=== PATIENT | male | born 1950 | race Caucasian/White ===

== ENCOUNTER 2021-04-03 17:11 | Emergency (ER) | payer MEDICARE, BC ==
--- NOTE | 2021-04-03 18:33 | EDM.PDOC ---
ED HPI GENERAL MEDICAL PROBLEM - General Chief Complaint: Upper Extremity Injury/Pain Stated Complaint: INJURED HAND Time Seen by Provider: 04/03/21 18:32 Source of Information: Reports: Patient, RN Notes Reviewed History Limitations: Reports: No Limitations - History of Present Illness INITIAL COMMENTS - FREE TEXT/NARRATIVE: Adrián presents today for complaints of left hand injury. He reports he was using a drill and it struck metal, causing twisting and a crack in his hand. Pain to the 4th metacarpal. He states he initially had some deformity, he straightened his 4th finger and the deformity decreased. He has not taken any OTC medications for pain, ice applied to area. He denies any other injury or trauma. - Related Data Allergies Allergy/AdvReac Type Severity Reaction Status Date / Time No Known Allergies Allergy Verified 04/03/21 18:12 Home Meds: Home Meds lisinopriL [Lisinopril] 1 tab PO DAILY 04/03/21 [History] Past Medical History Cardiovascular History: Reports: Hypertension Genitourinary History: Reports: BPH - Past Surgical History Male Surgical History: Reports: Prostatectomy Social & Family History - Tobacco Use Tobacco Use Status *Q: Never Tobacco User Review of Systems - Review of Systems Review Of Systems: See Below Constitutional: Reports: No Symptoms Eyes: Reports: No Symptoms Ears: Reports: No Symptoms Nose: Reports: No Symptoms Mouth/Throat: Reports: No Symptoms Respiratory: Reports: No Symptoms Cardiovascular: Reports: No Symptoms GI/Abdominal: Reports: No Symptoms Musculoskeletal: Reports: Other (left hand pain) Skin: Reports: No Symptoms Neurological: Reports: No Symptoms Psychiatric: Reports: No Symptoms ED EXAM, GENERAL - Physical Exam Exam: See Below Exam Limited By: No Limitations General Appearance: Alert, WD/WN, No Apparent Distress Head: Atraumatic, Normocephalic Respiratory/Chest: No Respiratory Distress, Lungs Clear, Normal Breath Sounds, No Accessory Muscle Use, Chest Non-Tender. No: Crackles, Rales, Rhonchi, Wheezing Cardiovascular: Normal Peripheral Pulses, Regular Rate, Rhythm, No Edema, No Gallop, No Murmur, No Rub Peripheral Pulses: 4+: Radial (L), Radial (R) Extremities: Normal Capillary Refill, Other (slightly decreased ROM to left 4th finger, no obvious deformity noted. Tender over 4th metacarpal. No pain to left wrist or elbow.) Neurological: Alert, Oriented, Normal Cognition, Normal Gait, No Motor/Sensory Deficits Psychiatric: Normal Affect, Normal Mood Skin Exam: Warm, Dry, Intact, Normal Color, No Rash Lymphatic: No Adenopathy ED TRAUMA EXTREMITY PROCEDURES - Splinting Left Upper Extremity Splint Site: left hand Pre-Procedure NV Status: Normal Post-Procedure NV Status: Normal Splint Material: Fiberglass Splint Design: Gutter (ulnar gutter to 70 degrees) Applied & Form Fitted By: Provider Provider Post-Splint Application NV Check: NV Status Normal, Good Position Complications: No Course - Vital Signs Last Recorded V/S: Last Vital Signs Temp 36.2 C 04/03/21 18:18 Pulse 62 04/03/21 18:18 Resp 16 04/03/21 18:18 BP 161/93 H 04/03/21 18:18 Pulse Ox 99 04/03/21 18:18 - Orders/Labs/Meds Orders: Active Orders 24 hr Category Date Time Status Hand Comp Min 3V Lt [CR] Stat Exams 04/03/21 18:40 Taken - Radiology Interpretation Free Text/Narrative:: Mildly displaced 4th metacarpal fracture -spiral to left hand. Images pushed to [facility]. Images reviewed with patient. Per [facility], we will splint patient in ulnar gutter splint at 70 degrees and have him follow up at the [facility] with a telephone call on Monday April 05, 2021 to schedule an appointment. - Re-Assessments/Exams Free Text/Narrative Re-Assessment/Exam: 04/03/21 19:40 [facility] manager telephoned back. We will splint patient with a ulnar gutter splint and have patient follow up with [facility] Tuesday morning for an appointment next week. Patient in agreement with plan. Departure - Departure Time of Disposition: 20:09 Disposition: Home, Self-Care 01 Condition: Good Clinical Impression: Fracture of metacarpal bone - Discharge Information *PRESCRIPTION DRUG MONITORING PROGRAM REVIEWED*: No *COPY OF PRESCRIPTION DRUG MONITORING REPORT IN PATIENT EVITA: No Instructions: Cast or Splint Care, Adult, [id number], Metacarpal Fracture, [id number] Referrals: PCP,None [Primary Care Provider] - Forms: ED Department Discharge Additional Instructions: You have been evaluated and treated for a 4th angulated slightly displaced fracture of the 4th metacarpal. Take acetaminophen and ibuprofen as needed for pain. Rest, ice elevate the left hand to help with pain. Wear sling when up to help with pain/edema. Follow up with [facility] orthopedic clinic on Tuesday April 06, 2021. Telephone the clinic and request a orthopedic visit for follow up. Return for any worsening, issues or concerns. Sepsis Event Note (ED) - Evaluation Sepsis Screening Result: No Definite Risk - Focused Exam Vital Signs: Vital Signs Temp Pulse Resp BP Pulse Ox 04/03/21 18:18 36.2 C 62 16 161/93 H 99 04/03/21 17:56 36.2 C 62 16 161/93 H 99 - My Orders Last 24 Hours: My Active Orders 04/03/21 18:40 Hand Comp Min 3V Lt [CR] Stat - Assessment/Plan Last 24 Hours: My Active Orders 04/03/21 18:40 Hand Comp Min 3V Lt [CR] Stat Assessment:: Fracture of metacarpal bone Left 4th with angulation and slight displacement Plan: Patient evaluated and treated for a 4th angulated slightly displaced fracture of the 4th metacarpal. Take acetaminophen and ibuprofen as needed for pain. Rest, ice elevate the left hand to help with pain. Wear sling when up to help with pain/edema. Follow up with [facility] orthopedic clinic on Tuesday April 06, 2021. Telephone the clinic and request a orthopedic visit for follow up. Return for any worsening, issues or concerns.
--- NOTE | 2021-04-06 09:18 | CR ---
Hand Comp Min 3V Lt CLINICAL HISTORY: Injury FINDINGS: There is an oblique fracture of the fourth metacarpal with slight displacement. Impression: Fourth metacarpal fracture.
== END 2021-04-03 20:18 | disposition home or self-care (01) ==
LOC: JP.ED 17:11
DX: S62.395A Other fracture of fourth metacarpal bone, left hand, initial encounter for closed fracture (principal); I10 Essential (primary) hypertension; Z79.899 Other long term (current) drug therapy; W22.8XXA Striking against or struck by other objects, initial encounter
CPT/HCPCS: 29125; 73130-26-LT; 73130-LT; 99283-25